=== PATIENT | female | born 1935 | race Caucasian/White ===

== ENCOUNTER 2017-06-18 20:52 | Observation (INO) ==
--- NOTE | 2017-06-18 21:00 | Emergency Department Note ---
Disposition Clinical Impression: Weakness, UTI (urinary tract infection) Disposition: Admitted As Inpatient Condition: Fair Referrals: Mounika Carnes MD [Primary Care Provider] - Forms: ED Satisfaction Letter Time of Disposition: 23:34 [facility] Fall HPI - General Chief Complaint: ED Fall Stated Complaint: fall Time Seen by Provider: 06/18/17 20:55 Source: patient Mode of arrival: ambulatory Limitations: no limitations Nursing Notes Reviewed: Yes Vital Signs Reviewed: Yes - History of Present Illness HPI Narrative: Patient had a near syncopal episode at home just prior to arrival contacted her daughter threough a remote who then came over and checked on her as result in conversation she states that she just does not feel well she cannot really describe it she denies any headache a neck neck pain or neck stiffness as result of all she has been having neck pain for neck pain for the past 2 weeks she denies diarrhea melena hematochezia hematemesis states that she was just walking when everything just drained from her she said she also activating stopped and her body she denies anything additional or any additional complaints at this time Pt Subjective Complaint: fall 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 Denies: headache, numbness, chest pain, shortness of breath, abdominal pain, hematuria, unable to walk, lightheaded, vertigo, confusion - Related Data Home Medications Medication Instructions Recorded Confirmed No Known Home Drugs 06/18/17 06/18/17 Allergies Allergy/AdvReac Type Severity Reaction Status Date / Time Amoxicillin Allergy Gastrointestinal Verified 06/18/17 20:54 Upset codeine Allergy Fainting Verified 06/18/17 20:54 Penicillins Allergy Gastrointestinal Verified 06/18/17 20:54 Upset Sulfa (Sulfonamide Allergy Gastrointestinal Verified 06/18/17 20:54 Antibiotics) Upset All systems ED: reviewed and negative except as stated. Review of Systems: As Per HPI Constitutional: Reports: weakness. Denies: fever, chills Eyes: Denies: eye pain, eye discharge ENT ED: Denies: ear pain Cardiovascular: Denies: chest pain, palpitations Respiratory: Denies: cough, dyspnea Gastrointestinal: Denies: abdominal pain, nausea, vomiting Genitourinary: Denies: urgency, dysuria, frequency Musculoskeletal: Reports: neck pain. Denies: back pain Integumentary: Denies: rash, abrasion, lesions Neurological: Reports: weakness. Denies: headache, numbness, paresthesias, confusion, abnormal gait Psychiatric: Denies: anxiety, depression Endocrine: Reports: fatigue. 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 DIRECTOR history - Social History Smoking Status: Never smoker Alcohol use: Reports: none Physical Exam - General Limitations: no limitations General appearance: alert, in no apparent distress, anxious - Head Head exam: atraumatic, normocephalic, normal inspection - Eye Eye exam: Present: normal appearance, PERRL, EOMI - ENT ENT exam: normal exam, normal oropharynx, mucous membranes moist, normal external ear exam - Neck Neck exam: Present: normal inspection, full ROM, trachea midline - Chest Chest inspection: Present: normal inspection, symmetric chest wall rise - Respiratory Respiratory exam: Present: normal lung sounds bilaterally - Cardiovascular Cardiovascular exam: Present: regular rate, normal rhythm, normal heart sounds - Abdominal Exam Abdominal exam: Present: soft, Non-Tender, normal bowel sounds. Absent: mass, pulsatile mass - Extremities Exam Extremities exam: Present: normal inspection, full ROM, normal capillary refill , other (No loss of muscle tone strength no focal weakness neurovascular intact to all extremities motor intact without deficits). Absent: tenderness, pedal edema, joint swelling - Back Exam Back exam: Present: normal inspection, full ROM. Absent: muscle spasm - Neurological Exam Neurological exam: Present: alert, oriented X3, CN II-XII intact - Psychiatric Psychiatric exam: Present: normal affect, normal mood - Skin Skin exam: Present: warm, dry, intact, normal color Course Course Narrative: patient seen and examined awaiting laboratory results - Reevaluation(s) Reevaluation #1: His SHOW that she has underlying UTI still feeling weak just not right as result with a negative CAT scan will monitor her overnight family and patient agreeable transferred to [facility] Vital Signs Temperature 97.8 F 06/18/17 20:55 Pulse Rate 93 06/18/17 20:55 Respiratory Rate 17 06/18/17 20:55 Blood Pressure 113/73 06/18/17 20:55 O2 Sat by Pulse Oximetry 97 06/18/17 20:55 Temperature 97.8 F 06/18/17 20:55 Pulse Rate 89 06/18/17 21:28 Respiratory Rate 20 06/18/17 21:28 Blood Pressure 116/88 06/18/17 21:28 O2 Sat by Pulse Oximetry 97 06/18/17 21:28 Oxygen Delivery Oxygen Delivery Room Air Fall - Differential Diagnosis Likely: syncope, traumatic injury - Medical Records Medical records reviewed: Yes I reviewed the patient's medical records. - Lab Data Lab results reviewed: Yes I reviewed the patient's lab results. Result diagrams: 06/18/17 21:31 06/18/17 21:31 Lab Results 06/18/17 06/18/17 06/18/17 Range/Units 21:31 21:31 21:31 WBC 7.3 (4.3-11.1) K/mcL RBC 3.90 (3.82-4.97) M/mcL Hgb 12.3 (11.5-15.4) g/dL Hct 36.1 (35.3-44.9) % MCV 92.6 (83.0-100.0) fL MCH 31.5 (28.0-33.3) pg MCHC 34.1 (31.6-35.5) g/dL RDW 12.6 (11.5-14.5) % Plt Count 221 (140-400) K/mcL MPV 9.9 (9.4-12.4) fL Immature Gran % 0.4 (0-4) % Seg Neutrophils % 57.7 % Lymphocytes % 26.8 % Monocytes % 9.9 % Eosinophils % 4.5 % Basophils % 0.7 % Neutrophils # 4.2 (1.6-8.9) K/mcL Lymphocytes # 2.0 (0.6-4.6) K/mcL Monocytes # 0.7 (0.0-1.3) K/mcL Eosinophils # 0.3 (0.0-0.6) K/mcL Basophils # 0.1 (0.0-0.2) K/mcL PT (9.4-12.1) Seconds INR APTT 29.9 (26.0-36.0) Seconds Sodium 142 (136-145) mEq/L Potassium 3.6 (3.5-4.5) mEq/L Chloride 104 (98-109) mEq/L Carbon Dioxide 25 (19-29) mEq/L BUN 17 (7-20) mg/dL Creatinine 1.02 (0.57-1.11) mg/dL Est GFR ( Amer) > 60 (> 60) Est GFR (Non-Af Amer) 52 L (> 60) BUN/Creatinine Ratio 17 (6-26) Glucose 74 (70-99) mg/dL Calculated Osmolality 294 (280-300) Calcium 9.7 (8.6-10.8) mg/dL Phosphorus (2.3-4.7) mg/dL Magnesium (1.6-2.6) mg/dL Total Bilirubin 0.6 (0.2-1.2) mg/dL AST 21 (5-34) Units/L ALT 12 (0-55) Units/L Alkaline Phosphatase 63 (38-126) Units/L Troponin I (0-0.03) ng/mL B-Natriuretic Peptide (0-100) pg/mL Serum Total Protein 6.9 (6.0-8.3) g/dL Albumin 3.7 (3.5-5.0) g/dL Globulin 3.2 (2.4-3.5) g/dL Albumin/Globulin Ratio 1.2 (1.1-2.2) TSH (0.350-4.840) mcIU/mL 06/18/17 06/18/17 06/18/17 Range/Units 21:31 21:31 21:31 WBC (4.3-11.1) K/mcL RBC (3.82-4.97) M/mcL Hgb (11.5-15.4) g/dL Hct (35.3-44.9) % MCV (83.0-100.0) fL MCH (28.0-33.3) pg MCHC (31.6-35.5) g/dL RDW (11.5-14.5) % Plt Count (140-400) K/mcL MPV (9.4-12.4) fL Immature Gran % (0-4) % Seg Neutrophils % % Lymphocytes % % Monocytes % % Eosinophils % % Basophils % % Neutrophils # (1.6-8.9) K/mcL Lymphocytes # (0.6-4.6) K/mcL Monocytes # (0.0-1.3) K/mcL Eosinophils # (0.0-0.6) K/mcL Basophils # (0.0-0.2) K/mcL PT 11.3 (9.4-12.1) Seconds INR 1.1 APTT (26.0-36.0) Seconds Sodium (136-145) mEq/L Potassium (3.5-4.5) mEq/L Chloride (98-109) mEq/L Carbon Dioxide (19-29) mEq/L BUN (7-20) mg/dL Creatinine (0.57-1.11) mg/dL Est GFR ( Amer) (> 60) Est GFR (Non-Af Amer) (> 60) BUN/Creatinine Ratio (6-26) Glucose (70-99) mg/dL Calculated Osmolality (280-300) Calcium (8.6-10.8) mg/dL Phosphorus 2.3 (2.3-4.7) mg/dL Magnesium 2.1 (1.6-2.6) mg/dL Total Bilirubin (0.2-1.2) mg/dL AST (5-34) Units/L ALT (0-55) Units/L Alkaline Phosphatase (38-126) Units/L Troponin I (0-0.03) ng/mL B-Natriuretic Peptide 34 (0-100) pg/mL Serum Total Protein (6.0-8.3) g/dL Albumin (3.5-5.0) g/dL Globulin (2.4-3.5) g/dL Albumin/Globulin Ratio (1.1-2.2) TSH 6.532 H (0.350-4.840) mcIU/mL 06/18/17 Range/Units 21:31 WBC (4.3-11.1) K/mcL RBC (3.82-4.97) M/mcL Hgb (11.5-15.4) g/dL Hct (35.3-44.9) % MCV (83.0-100.0) fL MCH (28.0-33.3) pg MCHC (31.6-35.5) g/dL RDW (11.5-14.5) % Plt Count (140-400) K/mcL MPV (9.4-12.4) fL Immature Gran % (0-4) % Seg Neutrophils % % Lymphocytes % % Monocytes % % Eosinophils % % Basophils % % Neutrophils # (1.6-8.9) K/mcL Lymphocytes # (0.6-4.6) K/mcL Monocytes # (0.0-1.3) K/mcL Eosinophils # (0.0-0.6) K/mcL Basophils # (0.0-0.2) K/mcL PT (9.4-12.1) Seconds INR APTT (26.0-36.0) Seconds Sodium (136-145) mEq/L Potassium (3.5-4.5) mEq/L Chloride (98-109) mEq/L Carbon Dioxide (19-29) mEq/L BUN (7-20) mg/dL Creatinine (0.57-1.11) mg/dL Est GFR ( Amer) (> 60) Est GFR (Non-Af Amer) (> 60) BUN/Creatinine Ratio (6-26) Glucose (70-99) mg/dL Calculated Osmolality (280-300) Calcium (8.6-10.8) mg/dL Phosphorus (2.3-4.7) mg/dL Magnesium (1.6-2.6) mg/dL Total Bilirubin (0.2-1.2) mg/dL AST (5-34) Units/L ALT (0-55) Units/L Alkaline Phosphatase (38-126) Units/L Troponin I 0.00 (0-0.03) ng/mL B-Natriuretic Peptide (0-100) pg/mL Serum Total Protein (6.0-8.3) g/dL Albumin (3.5-5.0) g/dL Globulin (2.4-3.5) g/dL Albumin/Globulin Ratio (1.1-2.2) TSH (0.350-4.840) mcIU/mL - Radiology Data Radiology results reviewed: Yes I reviewed the patient's radiology results. ITS Impressions Cervical Spine CT 06/18/17 21:11 IMPRESSION: No acute abnormality of the cervical spine. D/ / Nazario Joseph MD / Nazario Joseph MD Interpreting Provider: Nazario Joseph MD Head CT 06/18/17 21:11 IMPRESSION: No acute intracranial abnormality. D/ / Nazario Joseph MD / Nazario Joseph MD Interpreting Provider: Nazario Joseph MD - EKG Data EKG attestation: Yes I reviewed and interpreted this EKG. EKG results narrative: Sinus rhythm first-degree AV block rate 73 NE 24 QRS 76 QT 361 axis 0 Critical Care Time Critical Care Time: No
[2017-06-18 21:39] LABS: Basophils # 0.1 K/mcL (0.0-0.2); Basophils % 0.7 %; Eosinophils # 0.3 K/mcL (0.0-0.6); Eosinophils % 4.5 %; Hematocrit 36.1 % (35.3-44.9); Hemoglobin 12.3 g/dL (11.5-15.4); Immature Granulocytes % 0.4 % (0-4); Lymphocytes % 26.8 %; Mean Corpuscular HGB Conc 34.1 g/dL (31.6-35.5); Mean Corpuscular Hemoglobin 31.5 pg (28.0-33.3); Mean Corpuscular Volume 92.6 fL (83.0-100.0); Mean Platelet Volume 9.9 fL (9.4-12.4); Monocytes # 0.7 K/mcL (0.0-1.3); Monocytes % 9.9 %; Neutrophils # 4.2 K/mcL (1.6-8.9); Platelet Count 221 K/mcL (140-400); Red Cell Distribution Width 12.6 % (11.5-14.5); Segmented Neutrophils % 57.7 %
[2017-06-18 21:44] LABS: INR 1.1; Prothrombin Time 11.3 Seconds (9.4-12.1)
[2017-06-18 21:55] LABS: Magnesium 2.1 mg/dL (1.6-2.6); Phosphorous 2.3 mg/dL (2.3-4.7)
[2017-06-18 21:57] LABS: Alanine Aminotransferase 12 Units/L (0-55); Albumin 3.7 g/dL (3.5-5.0); Albumin/Globulin Ratio 1.2 (1.1-2.2); Alkaline Phosphatase 63 Units/L (38-126); Aspartate Amino Transferase 21 Units/L (5-34); BUN/Creatinine Ratio 17 (6-26); Bilirubin,Total 0.6 mg/dL (0.2-1.2); Blood Urea Nitrogen 17 mg/dL (7-20); Calcium 9.7 mg/dL (8.6-10.8); Carbon Dioxide 25 mEq/L (19-29); Chloride 104 mEq/L (98-109); Globulin 3.2 g/dL (2.4-3.5); Glucose 74 mg/dL (70-99); Osmolality,Calculated 294 (280-300); Potassium 3.6 mEq/L (3.5-4.5); Sodium 142 mEq/L (136-145); Total Protein 6.9 g/dL (6.0-8.3); eGFR For African Americans > 60 (> 60); eGFR For Non-African Americans 52 (> 60)
[2017-06-18 22:16] LABS: Thyroid Stimulating Hormone 6.532 mcIU/mL (0.350-4.840)
[2017-06-18 22:58] LABS: Bilirubin,Urine Negative (Negative); Blood,Urine Negative (Negative); Clarity,Urine Clear (Clear); Color,Urine Yellow (Yellow); Glucose,Urine (UA) 100 mg/dL (Normal); Ketones,Urine Negative (Negative); Leukocyte Esterase,Urine Trace (Negative); Nitrite,Urine Negative (Negative); Protein,Urine Trace mg/dL (Neg-Trace); Urobilinogen,Urine Normal (Normal)
[2017-06-18 23:15] LABS: Hyaline Casts,Urine Many per lpf (None-Few); Mucus,Urine Moderate (Few)
[2017-06-18 23:16] LABS: Squamous Epithelial Cell,Urine Few per lpf (None-Few)
[2017-06-18 23:17] LABS: Bacteria,Urine Moderate per hpf (None-Few); RBC,Urine 0-3 per hpf (0-3)
[2017-06-19] MEDS ORDERED: Naloxone 0.4 MG/ML INJ IVP PRN (00:39)
[2017-06-19] MEDS ORDERED: Ondansetron ODT 4 MG TAB.RAPDIS SL PRN (00:39)
--- NOTE | 2017-06-19 14:41 | Electrocardiograph Report ---
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
--- NOTE | 2017-06-19 15:20 | Internal Med History&Physical ---
Date of Encounter: 06/19/17 Time of Encounter: 14:45 Assessment and Plan (1) Near syncope Current visit: Yes Status: Acute Resolved. Etiology uncertain but suspected cardiovascular rather than neurogenic origin. We will check orthostatic vital signs prior to discharge. (2) Azotemia Current visit: Yes Status: Acute Creatinine has risen from 0.71 in June 2014 to 1.02 now. (3) Elevated TSH Current visit: Yes Status: Acute Duration unknown. No previous TSH is available in archived labs. (4) UTI (urinary tract infection) Current visit: Yes Status: Acute She was given Rocephin in the emergency room. Qualifiers: Urinary tract infection type: site unspecified Hematuria presence: without hematuria Qualified Code(s): N39.0 - Urinary tract infection, site not specified Internal Medicine - H&P: HPI Chief complaint: Near syncope Admitted From: Home Plans for Post Hospital Care: Home History of present illness: Ms. Dial is a 81 year old female who came to the emergency room stating she had near syncope while standing in her living room. She reports she had just come in from outdoors and was using her TV remote when she had sudden onset of feeling hot and experienced near syncope. She did not feel she could make it across the room to her chair so gently eased herself down to the floor. She is uncertain if there was sensation of bradycardia present. After 5-10 minutes she was able to reach for the telephone a few feet away and call her daughter. She was brought by her daughter to the emergency room and evaluated. She was admitted to [facility] for ongoing care needs. She denies previous similar episodes of near syncope or syncope. She denies chest pain or dyspnea. She states she feels tired at present time but overall improved and stable for discharge home. Her cardiovascular history is negative for hypertension heart failure angina DVT or pulmonary embolus. Past Med Surg Social Fam HX - Past Medical History Medical history: hypertension Psychiatric history: no psych history - Social History Smoking Status: Never smoker Smokeless Tobacco Status: No Alcohol use: none Drug use: none Internal Medicine - H&P: Meds No Known Home Drugs 06/18/17 [History] Allergies Amoxicillin Allergy (Verified 06/18/17 20:54) Gastrointestinal Upset codeine Allergy (Verified 06/18/17 20:54) Fainting Penicillins Allergy (Verified 06/18/17 20:54) Gastrointestinal Upset Sulfa (Sulfonamide Antibiotics) Allergy (Verified 06/18/17 20:54) Gastrointestinal Upset All Systems PM: A 10-system review of systems was performed and is negative for pertinent findings except as documented above in the HPI. Review of systems: Gen.: She states her weight has been stable past few months Cardiovascular: As per history of present illness Respiratory: She is a lifelong nonsmoker and has no known chronic lung disease GI: She denies disorders of her liver gallbladder or exocrine pancreas : She had ovarian cysts and underwent BSO several years ago. She did not have hysterectomy. She denies disorders of her kidneys or bladder Neurologic: She denies large distribution strokes or seizures. 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 She denies diabetes or hyperlipidemia Hematology/oncology: She denies blood disorders cancers or anemia Psychiatric: She has anxiety and depression but does not take medication Musk skeletal: She has DJD and osteoporosis but no known gout or other bone joint or muscle disorders. - Constitutional Vitals: Temp Pulse Resp BP Pulse Ox 97.9 F 82 16 135/65 95 06/19/17 14:30 06/19/17 14:30 06/19/17 14:30 06/19/17 14:30 06/19/17 14:30 Exam: Gen.: She is a well-developed well-nourished female who appears in no acute distress HEENT: Head is atraumatic and normocephalic. Eyes: EOMI. There is no scleral icterus. Mouth: Mucosa is moist. Neck: Supple and nontender. There is no thyromegaly or adenopathy noted. Heart: Regular without murmurs gallops or ectopics Lungs: No wheezes or crackles are heard. Abdomen: Soft and nontender. No masses or guarding are noted. Extremities: There is edema of her lower legs. She has DJD changes of her hands. Neurologic: Mental status: She is talkative and a good historian. Cranial nerves: Smile is symmetric. Forehead wrinkles bilaterally. Tongue protrudes midline. EOMI. Motor: There is no pronator drift. Cerebellar: Finger to nose is intact bilaterally. Skin: Warm and dry Internal Med - H&P Results - Labs CBC & Chem 7: 06/18/17 21:31 06/18/17 21:31 Labs: Cardiac Enzymes 06/19/17 06/19/17 Range/Units 03:25 08:58 Troponin I 0.00 0.00 (0-0.03) ng/mL
--- NOTE | 2017-06-19 15:33 | Discharge Summary ---
Date of Encounter: 06/19/17 Time of Encounter: 14:45 - Discharge Diagnosis (1) Near syncope Priority: Primary Status: Acute (2) Azotemia Priority: Secondary Status: Acute (3) Elevated TSH Priority: Secondary Status: Acute (4) UTI (urinary tract infection) Priority: Secondary Status: Acute Qualifiers: Urinary tract infection type: site unspecified Hematuria presence: without hematuria Qualified Code(s): N39.0 - Urinary tract infection, site not specified - Discharge Medications Prescriptions: Nitrofurantoin (BID) [Macrobid] 100 mg PO BID #6 capsule Home Medications: Nitrofurantoin (BID) [Macrobid] 100 mg PO BID #6 capsule 06/19/17 [Rx] Allergies/Adverse Reactions: Allergies Amoxicillin Allergy (Verified 06/18/17 20:54) Gastrointestinal Upset codeine Allergy (Verified 06/18/17 20:54) Fainting Penicillins Allergy (Verified 06/18/17 20:54) Gastrointestinal Upset Sulfa (Sulfonamide Antibiotics) Allergy (Verified 06/18/17 20:54) Gastrointestinal Upset Date of admission: 06/19/17 00:19 Primary care physician: Mounika Carnes Consults: 06/19/17 12:11 Consult to Occupational Therapy [CONS] Routine Comment: Evaluate, develop and implement POC Reason for Consult: Weakness Consult to Physical Therapy [CONS] Routine Comment: Evaluate, develop and implement POC Reason for Consult: Weakness - Patient Status Disposition: Home, Self-Care Condition: Fair Overall status at discharge: patient is progressing back to baseline - Discharge Instructions Follow Up With: Mounika Carnes MD [Primary Care Provider] - 1 week - Diet and Activity Activity: resume usual activities as tolerated Diet: advance to your usual diet Hospital course: Ms. Dial is a 81 year old female who came to the emergency room stating she had near syncope while standing in her living room. She reports she had just come in from outdoors and was using her TV remote when she had sudden onset of feeling hot and experienced near syncope. She did not feel she could make it across the room to her chair so gently eased herself down to the floor. She is uncertain if there was sensation of bradycardia present. After 5-10 minutes she was able to reach for the telephone a few feet away and call her daughter. She was brought by her daughter to the emergency room and evaluated. She was admitted to [facility] for ongoing care needs. Initial orders were written by the emergency room physician. I saw her the afternoon of June 19 and performed a history physical and discharge. Repeat cardiac enzymes showed no evidence of myocardial damage. When I saw her she stated she felt improved and stable for discharge home and did not feel she needed to stay in the hospital an additional day. She will have orthostatic vital signs checked prior to discharge. She will be treated empirically with Macrobid for 3 days for possible UTI. I will let her PCP address the elevated TSH and slightly decreased estimated GFR. - Time Spent with Patient Total time spent providing and/or coordinating discharge services: - Constitutional Vitals: Temp Pulse Resp BP Pulse Ox 97.9 F 82 16 135/65 95 06/19/17 14:30 06/19/17 14:30 06/19/17 14:30 06/19/17 14:30 06/19/17 14:30
[2017-06-19 15:54] VITALS: BP 142/82
== END 2017-06-19 16:44 | disposition home or self-care (01) ==
LOC: EMEROOPIK 20:52 → INPPIK 20:52
PROVIDERS: ADMIT Internal Medicine; ATTEND Internal Medicine